=== PATIENT | female | born 1995 | race Caucasian/White ===

== ENCOUNTER 2017-08-17 13:12 | Emergency (ER) | payer MEDICAID ==
[2017-08-17 13:21] VITALS: BP 131/87; PULSE 93; RESP 18; TEMP 98.1; O2SAT 98
[2017-08-17] MEDS ORDERED: Bacitracin 500 Units/gm Oint Foilpak UD TOP ONE (13:24)
[2017-08-17] MEDS ORDERED: Tetanus/Diphtheria Toxoids 0.5 ml Syringe IM ONE ×2 (13:24→13:35)
--- NOTE | 2017-08-17 13:27 | C.PDOC ---
History Of Present Illness 22 year old female presents to ED with complaints of right hand wound from broken glass medicine dropper in lab class today. She states it broke and a chip was on counter and she cut her hand. She denies any glass in wound. She quickly washed hand in classroom. Time Seen by Provider: 08/17/17 13:20 Chief Complaint (Nursing): Abnormal Skin Integrity History Per: Patient History/Exam Limitations: no limitations Onset/Duration Of Symptoms: Hrs Current Symptoms Are (Timing): Still Present Severity: Moderate Past Medical History Reviewed: Historical Data, Nursing Documentation, Vital Signs Vital Signs: Last Vital Signs Temp 98.1 F 08/17/17 13:18 Pulse 93 H 08/17/17 13:18 Resp 18 08/17/17 13:18 BP 131/87 08/17/17 13:18 Pulse Ox 98 08/17/17 15:14 - Medical History PMH: Migraine Denies: Diabetes, Hepatitis, HIV, HTN, Seizures, Sexually Transmitted Disease Surgical History: No Surg Hx - [facility] Procedures INDIVID PSYCHOTHERAP NEC (02/11/14) OTHER GROUP THERAPY (02/11/14) Family History: States: No Known Family Hx - Social History Hx Tobacco Use: No Hx Alcohol Use: No Hx Substance Use: No - Immunization History Hx Tetanus Toxoid Vaccination: No Hx Influenza Vaccination: No Hx Pneumococcal Vaccination: No Review Of Systems Except As Marked, All Systems Reviewed And Found Negative. Skin: Positive for: Other (right hand wound) Physical Exam - Physical Exam Appears: Non-toxic, No Acute Distress Skin: Normal Color, Warm, Other (superficial puncture wound to right palm base, no active bleeding, no foreign body) Head: Atraumatic, Normacephalic Eye(s): bilateral: Normal Inspection Nose: Normal Oral Mucosa: Moist Neck: Supple Chest: Symmetrical Neurological/Psych: Oriented x3, Normal Speech ED Course And Treatment O2 Sat by Pulse Oximetry: 98 (RA) Pulse Ox Interpretation: Normal Medical Decision Making Medical Decision Making: Wound cleansed and irrigated with NS. No signs of foreign body. Tetanus administered. Bacitracin and dressing applied. Disposition Counseled Patient/Family Regarding: Diagnosis, Need For Followup, Rx Given - Disposition Referrals: Will Stanley MD [Staff Provider] - Disposition: HOME/ ROUTINE Disposition Time: 13:28 Condition: GOOD Additional Instructions: Keep area clean and dry. May wash gently with soap and water, do not use alcohol or iodine solution. Change dressing 1-2 times daily. Return to ER if fever occurs, redness or swelling around wound, pus in the wound. Instructions: Wound Care (DC) Forms: [facility] ([employer]), School Excuse - POA Present On Arrival: None - Clinical Impression Clinical Impression: Puncture wound of hand - PA / [employer] / Resident Statement MD/DO has reviewed & agrees with the documentation as recorded. - Scribe Statement The provider has reviewed the documentation as recorded by the Kellyibbeti Zamora Provider Attestation All medical record entries made by the Kellyibbeti were at my direction and personally dictated by me. I have reviewed the chart and agree that the record accurately reflects my personal performance of the history, physical exam, medical decision making, and the department course for this patient. I have also personally directed, reviewed, and agree with the discharge instructions and disposition.
[2017-08-17] MEDS ORDERED: Bacitracin 500 Units/gm Oint Foilpak UD ONE (13:29)
== END 2017-08-17 13:38 | disposition home or self-care (01) ==
LOC: C.ER 13:12
DX: S61.431A Puncture wound without foreign body of right hand, initial encounter (principal); W25.XXXA Contact with sharp glass, initial encounter; Y92.219 Unspecified school as the place of occurrence of the external cause; Z23 Encounter for immunization